=== PATIENT | male | born 1995 | race African-American/Black ===

== ENCOUNTER 2018-05-26 03:19 | Emergency (ER) | payer SELFPAY ==
[~2018-05-26] VITALS: Ht 162.6 cm; Wt 77.1 kg
[2018-05-26 03:27] VITALS: BP 143/111
[2018-05-26] MEDS ORDERED: IBUPROFEN 400 MG TABLET ONE (03:35)
[2018-05-26] MEDS ORDERED: IBUPROFEN 400 MG TABLET PO ONE (04:00)
== END 2018-05-26 05:20 | disposition home or self-care (01) ==
LOC: ER 03:21
DX: M79.642 Pain in left hand (principal); M79.89 Other specified soft tissue disorders; G40.909 Epilepsy, unspecified, not intractable, without status epilepticus; Z60.2 Problems related to living alone; W22.01XA Walked into wall, initial encounter; Y93.89 Activity, other specified; Y92.89 Other specified places as the place of occurrence of the external cause; Y99.8 Other external cause status
CPT/HCPCS: 29125; 73110; 73130; 99284; A4606; Z7610